=== PATIENT | male | born 1995 | race American Indian/Alaskan Native ===

== ENCOUNTER 2020-07-20 11:17 | Emergency (ER) | payer SELFPAY ==
[2020-07-20 11:58] VITALS: BP 117/77
--- NOTE | 2020-07-20 13:08 | Emergency Department Report ---
Chief Complaint: Urogenital-Male Stated Complaint: STD CHECK Time Seen by Provider: 07/20/20 13:03 - HPI History of Present Illness: 25-year-old -[place] male presents to the emergency room stating he needs STD check. Patient admits to penile discharge but denies any abdominal pain pelvic pain no nausea no vomiting no fever no chills. - Exam Vital Signs: Vital Signs 07/20/20 11:56 Temperature 97.7 F Pulse Rate 68 Respiratory 16 Rate Blood Pressure 117/77 O2 Sat by Pulse 99 Oximetry Physical Exam: Patient is alert and oriented x3 no acute distress nontoxic in appearance Patient has no labored breathing no use of accessory muscles Ambulatory without difficulties. MSE screening note: Focused history and physical exam performed. Due to findings the following was ordered: 25-year-old -[place] male presents to the emergency room stating he needs STD check. Patient admits to penile discharge but denies any abdominal pain pelvic pain no nausea no vomiting no fever no chills. Recommend to follow-up at the health department or urgent care clinic. ED Disposition for MSE Disposition: MED SCREENING EXAM-LEFT Is pt being admited?: No Does the pt Need Aspirin: No Condition: Stable Instructions: Sexually Transmitted Diseases (ED) Additional Instructions: Please follow up with a clinic. [facility] [Outside] - 3-5 Days [facility] [Other] - 3-5 Days Forms: Work/School Release Form(ED)
== END 2020-07-20 14:00 | disposition left against medical advice (07) ==
LOC: ED 11:17
DX: A64 Unspecified sexually transmitted disease (principal); Z53.21 Procedure and treatment not carried out due to patient leaving prior to being seen by health care provider